=== PATIENT | female | born 1965 | race Caucasian/White ===

== ENCOUNTER 2019-07-10 00:03 | Emergency (ER) | payer OTHER ==
[2019-07-10] MEDS ORDERED: Ketorolac 30 MG/ML SDV IVPUSH STA (01:01)
[2019-07-10] MEDS ORDERED: Tamsulosin 0.4 MG Cap.ER PO ONE (01:01)
[2019-07-10] MEDS ORDERED: Ondansetron 4 MG/2 ML SDV IVPUSH ONE (01:01)
--- NOTE | 2019-07-10 01:04 | EDM.PDOC ---
ED HPI GENERAL MEDICAL PROBLEM - General Chief Complaint: Abdominal Pain Stated Complaint: SIDE PAIN Time Seen by Provider: 07/10/19 00:29 Source of Information: Reports: Patient History Limitations: Reports: No Limitations - History of Present Illness INITIAL COMMENTS - FREE TEXT/NARRATIVE: Mrs. Delaney is a very pleasant 50-year-old woman with no significant past medical history, who states that she developed right flank pain that radiated to her right lower quadrant around 20:30, around the time that she caught her father, who was falling. The pain is stabbing in character, and waxes and wanes. It may feel a little bit better when she is standing, otherwise, she has not identified any modifiers. She has had nausea and dry heaves, which have not modified her symptoms. No recent fever, chills, cough, dyspnea, vomiting, constipation, diarrhea, or urinary symptoms, including dysuria, urinary frequency or urgency, or gross hematuria. The patient states that she had similar symptoms on 06/24/2019, but they resolved after about 30 minutes. She did not seek medical attention at the time. The patient's last oral solid food was around 18:00. The patient is visiting from [facility]. 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, Other (See Below) (ovarian cyst) Musculoskeletal History: Reports: Fracture (left clavicle) - Past Surgical History HEENT Surgical History: Reports: Adenoidectomy, Oral Surgery (wisdom teeth extraction), Tonsillectomy GI Surgical History: Reports: Cholecystectomy (around 1998) Female Surgical History: Reports: D&C (x 2), Tubal Ligation (around 1999) Musculoskeletal Surgical History: Reports: Other (See Below) (Right bunionectomy around 1991) Social & Family History - Tobacco Use Smoking Status *Q: Never Smoker - Caffeine Use Caffeine Use: Reports: Coffee - Alcohol Use Alcohol Use History: Yes Alcohol Use Frequency: Socially - Recreational Drug Use Recreational Drug Use: No - Living Situation & Occupation Living situation: Reports: , with Spouse, with Family (1 son) 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 ED EXAM, GENERAL - Physical Exam Exam: See Below Exam Limited By: No Limitations General Appearance: Alert, WD/WN, Mild Distress (appears mildly uncomfortable) Eye Exam: Bilateral Eye: EOMI, Normal Inspection Ears: Normal External Exam, Hearing Grossly Normal Nose: Normal Inspection Throat/Mouth: Normal Inspection, Normal Lips, Normal Voice, No Airway Compromise Head: Atraumatic, Normocephalic Neck: Normal Inspection, Full Range of Motion Respiratory/Chest: No Respiratory Distress, Lungs Clear, Normal Breath Sounds, No Accessory Muscle Use Cardiovascular: Normal Peripheral Pulses, Regular Rate, Rhythm, No Edema, No Gallop, No JVD, No Murmur, No Rub Peripheral Pulses: 4+: Radial (L), Radial (R) GI/Abdominal: Normal Bowel Sounds, Soft, No Organomegaly, No Distention, No Abnormal Bruit, No Mass, Tender (Mild, to the right lower quadrant only. Nontender elsewhere, although palpation elsewhere leads to increased "pressure" sensation in the right lower quadrant.) (Female) Exam: Deferred Rectal (Female) Exam: Deferred Back Exam: Normal Inspection, Full Range of Motion, CVA Tenderness (R) ( nontender to direct palpation without percussion). No: CVA Tenderness (L) Extremities: Normal Inspection, Normal Range of Motion, No Pedal Edema, Normal Capillary Refill Neurological: Alert, Oriented, Normal Cognition, No Motor/Sensory Deficits Psychiatric: Normal Affect Skin Exam: Warm, Dry, Intact, Normal Color, No Rash Course - Vital Signs Last Recorded V/S: Last Vital Signs Temp 36.4 C 07/10/19 00:30 Pulse 96 07/10/19 00:30 Resp 18 07/10/19 00:30 BP 165/77 H 07/10/19 00:30 Pulse Ox 96 07/10/19 00:30 - Orders/Labs/Meds Orders: Active Orders 24 hr Category Date Time Status Abdomen Pelvis w Cont [CT] Stat Exams 07/10/19 00:59 Taken Sodium Chloride 0.9% [Normal Saline] 1,000 ml Med 07/10/19 01:15 Active IV ASDIRECTED Medication Orders Sodium Chloride (Normal Saline) 1,000 mls @ 150 mls/hr IV ASDIRECTED JOVON Last Admin: 07/10/19 01:27 Dose: 150 mls/hr Labs: Laboratory Tests 07/10/19 07/10/19 07/10/19 Range/Units 00:40 01:23 01:23 WBC 11.02 H (3.98-10.04) K/mm3 RBC 4.62 (3.98-5.22) M/mm3 Hgb 13.8 (11.2-15.7) gm/dl Hct 40.2 (34.1-44.9) % MCV 87.0 (79.4-94.8) fl MCH 29.9 (25.6-32.2) pg MCHC 34.3 (32.2-35.5) g/dl RDW Std Deviation 41.9 (36.4-46.3) fL Plt Count 397 H (182-369) K/mm3 MPV 9.0 L (9.4-12.3) fl Neutrophils % (Manual) 81 H (40-60) % Band Neutrophils % 0 (0-10) % Lymphocytes % (Manual) 13 L (20-40) % Atypical Lymphs % 0 % Monocytes % (Manual) 6 (2-10) % Eosinophils % (Manual) 0 L (0.7-5.8) % Basophils % (Manual) 0 L (0.1-1.2) Platelet Estimate Adequate Plt Morphology Comment Normal RBC Morph Comment Normal Sodium 142 (136-145) mEq/L Potassium 3.4 L (3.5-5.1) mEq/L Chloride 105 (98-107) mEq/L Carbon Dioxide 26 (21-32) mEq/L Anion Gap 14.4 (5-15) BUN 14 (7-18) mg/dL Creatinine 0.7 (0.55-1.02) mg/dL Est Cr Clr Drug Dosing 69.33 mL/min Estimated GFR (MDRD) > 60 (>60) mL/min BUN/Creatinine Ratio 20.0 H (14-18) Glucose 125 H (74-106) mg/dL Calcium 9.3 (8.5-10.1) mg/dL Total Bilirubin 1.1 H (0.2-1.0) mg/dL AST 13 L (15-37) U/L ALT 26 (14-59) U/L Alkaline Phosphatase 131 H (46-116) U/L Total Protein 7.0 (6.4-8.2) g/dl Albumin 3.7 (3.4-5.0) g/dl Globulin 3.3 gm/dL Albumin/Globulin Ratio 1.1 (1-2) Urine Color Yellow (Yellow) Urine Appearance Clear (Clear) Urine pH 6.0 (5.0-8.0) Ur Specific [place] 1.025 (1.005-1.030) Urine Protein 2+ H (Negative) Urine Glucose (UA) Negative (Negative) Urine Ketones Trace H (Negative) Urine Occult Blood 3+ H (Negative) Urine Nitrite Negative (Negative) Urine Bilirubin Negative (Negative) Urine Urobilinogen 0.2 (0.2-1.0) Ur Leukocyte Esterase Negative (Negative) Urine RBC 10-20 H (0-5) /hpf Urine WBC 5-10 H (0-5) /hpf Ur Epithelial Cells 0-5 (0-5) /hpf Urine Bacteria Rare (FEW) /hpf Urine Mucus Few (FEW) /hpf Meds: Medications Generic Name Dose Route Start Last Admin Trade Name Freq PRN Reason Stop Dose Admin Sodium Chloride 1,000 mls @ 150 mls/hr 07/10/19 01:15 07/10/19 01:27 Normal Saline IV 150 mls/hr ASDIRECTED JOVON Administration Discontinued Medications Generic Name Dose Route Start Last Admin Trade Name Freq PRN Reason Stop Dose Admin Diatrizoate Meglum/Diatrizoate Sod 90 ml 07/10/19 02:26 07/10/19 03:00 Gastrografin 37% PO 07/10/19 02:27 90 ml ONETIME ONE Administration Iopamidol 100 ml 07/10/19 02:26 07/10/19 03:00 Isovue-300 (61%) IVPUSH 07/10/19 02:27 100 ml ONETIME ONE Administration Ketorolac Tromethamine 30 mg 07/10/19 01:01 07/10/19 01:27 Toradol IVPUSH 07/10/19 01:02 30 mg ONETIME STA Administration Ondansetron HCl 4 mg 07/10/19 01:01 07/10/19 01:28 Zofran IVPUSH 07/10/19 01:02 4 mg ONETIME ONE Administration Tamsulosin HCl 0.4 mg 07/10/19 01:01 07/10/19 01:28 Flomax PO 07/10/19 01:02 0.4 mg ONETIME ONE Administration - Re-Assessments/Exams Free Text/Narrative Re-Assessment/Exam: 07/10/19 01:02 The patient's history and physical examination are most compelling for a right- sided ureterolith, and if that's what it turns out the patient has, then that may explain the pain that she suffered on 06/24/2019, as well. The only problem is that the patient also has some tenderness to her abdomen, raising the possibility that she could have an intra-abdominal process, such as appendicitis or (much less likely) a hemorrhagic ovarian cyst. For this reason, I have ordered a CT of the abdomen and pelvis with oral and IV contrast, along with some blood work and a urinalysis. In the meantime, the patient will receive IV fluid, IV Toradol, oral Flomax, and IV Zofran. She tells me that she has anaphylaxis to morphine, therefore I am avoiding Dilaudid. 07/10/19 02:35 The patient's CBC is remarkable for a WBC count mildly elevated at 11.02, but with 0% bandemia. Her platelets are mildly elevated at 397,000. The remainder of her CBC is unremarkable. Her CMP is remarkable for a potassium slightly depressed at 3.4, and blood glucose mildly elevated at 125. Her total bilirubin is slightly elevated at 1.1 , and her alkaline phosphatase is mildly elevated at 113. The remainder of her CMP is unremarkable. Her urinalysis is remarkable for 3+ occult blood and 10-20 RBCs, but his leukocyte Estrace negative with 5-10 WBCs and nitrite negative with few bacteria. The patient's urinalysis is not consistent with a UTI, but is consistent with a ureterolith. The results of the CT of the abdomen and pelvis are still pending. 07/10/19 03:31 CT of the abdomen and pelvis with oral and IV contrast is read by Ramon as "8 mm stone proximal right ureter causing moderate hydronephrosis." 07/10/19 03:47 Test results discussed with the patient. At 8 mm, the patient will not likely pass the stone on her own. She will need to be treated by a Urologist. The patient prefers to have that done once she returns home to [place] this coming 07/12/2019. I advised that she call a urologist in [place] now , to make an appointment to be seen as soon as possible after she returns home. I will discharge the patient home with prescriptions for Flomax and Zofran, as well as a CD-ROM of her CT scan. Departure - Departure Time of Disposition: 03:48 Disposition: Home, Self-Care 01 Condition: Good Clinical Impression: Ureterolithiasis - Discharge Information *PRESCRIPTION DRUG MONITORING PROGRAM REVIEWED*: Not Applicable *COPY OF PRESCRIPTION DRUG MONITORING REPORT IN PATIENT ROSEMARIE: Not Applicable Prescriptions: Ondansetron [Zofran ODT] 1 tab PO Q8H PRN #10 tab.dis PRN Reason: Nausea/Vomiting Tamsulosin HCl [Flomax] 1 cap PO QPM #5 cap.er.24h Referrals: PCP,Not In Area [Primary Care Provider] - Forms: ED Department Discharge Additional Instructions: You were seen in the emergency room for right flank that radiated to your right lower quadrant, along with nausea and dry heaves. Workup in the ER included blood work, a urinalysis, and a CT scan of your abdomen and pelvis with oral and IV contrast. Your workup found that you have an 8 mm stone in your proximal right ureter. Based on the size and location of the stone, you will not likely pass it on your own. You will need to see a Urologist. We recommend that you call a Urologist in [place], to make arrangements to be seen as soon as possible after you return home. You have been provided with a CD ROM of your CT scan. Take it to your Urologist. Prescriptions for the anti-spasm medicine Flomax in the anti-nausea medicine Zofran have been sent to the [facility], located just south and across the [address] from [facility]. Take one tablet of Flomax every evening, starting this evening, Monday, 2018. Dissolve one tablet of Zofran on your tongue up to every 8 hours, as needed for nausea/vomiting. We recommend that you take [id number] ibuprofen, 3 tablets (600 mg) every 8 hours, [id number]. Stay adequately hydrated. It does not really matter what type of fluid you drink. If any other problems, please do not hesitate to return to the ER. - My Orders Last 24 Hours: My Active Orders 07/10/19 00:59 Abdomen Pelvis w Cont [CT] Stat 07/10/19 01:15 Sodium Chloride 0.9% [Normal Saline] 1,000 ml IV ASDIRECTED - Assessment/Plan Last 24 Hours: My Active Orders 07/10/19 00:59 Abdomen Pelvis w Cont [CT] Stat 07/10/19 01:15 Sodium Chloride 0.9% [Normal Saline] 1,000 ml IV ASDIRECTED
[2019-07-10] MEDS ORDERED: Sodium Chloride 0.9% 1,000 ML IV SCH (01:15)
[2019-07-10] MEDS ORDERED: Diatrizoate Meglumine/Diatrizoate Sodium 37% 120 ML Bottle PO ONE (02:26)
[2019-07-10] MEDS ORDERED: Iopamidol 612 MG/ML 100 ML Bottle IVPUSH ONE (02:26)
--- NOTE | 2019-07-10 07:25 | CT ---
CT abdomen and pelvis Technique: Multiple axial sections were obtained from above the dome of the diaphragm inferiorly through the pubic symphysis. Intravenous and oral contrast was utilized. Comparison: No prior CT imaging is available. Findings: Right kidney collecting system is dilated. Slightly enhancing wall of the proximal ureter is seen. These findings are due to change from a partially obstructing proximal right ureteral stone located near the UPJ measuring 9.7 mm. No other abnormal calcifications are seen within the kidneys. No other ureteral calculi are seen. Visualized lung bases show nothing acute. Liver contains no focal abnormality. Surgical clips are seen from prior cholecystectomy. Spleen appears within normal limits. Pancreas is within normal limits. Adrenal glands contain no nodule. Aorta shows no aneurysm. No retroperitoneal adenopathy or mesenteric abnormalities are seen. No free fluid or inflammatory change otherwise seen. Minimal sigmoid diverticuli are seen as well as several diverticuli within the descending colon without diverticulitis. Incidental note of chronic malrotation with colon located on the left side of small bowel on the right side. Appendix is seen and is felt to be normal. Bone window settings were reviewed which appear within normal limits for the patient's age. Small fat-containing umbilical hernia is noted. Delayed images show contrast throughout both ureters. Impression: 1. Partially obstructing 9.7 mm proximal right ureteral stone located near the UPJ. 2. Chronic malrotation as an incidental finding. Other findings believed to be incidental as noted above. 3. No other acute abnormality is seen. Diagnostic code #3 I agree with preliminary report from [facility], finalized on 07/10/19, 4:14 AM Central Time
== END 2019-07-10 04:06 | disposition home or self-care (01) ==
LOC: JD.ED 00:03
DX: N20.1 Calculus of ureter (principal); Z90.49 Acquired absence of other specified parts of digestive tract; Z88.5 Allergy status to narcotic agent
CPT/HCPCS: 36415; 74177; 80053; 81001; 85007; 85027; 96361; 96374; 96375; 99284; A9270; J1885; J2405; J7040; Q9963; Q9967

== ENCOUNTER 2019-07-11 07:24 | Emergency (ER) | payer OTHER ==
[2019-07-11] MEDS ORDERED: HYDROmorphone 0.5 MG/0.5 ML Syringe IVPUSH ONE ×2 (07:54→08:32)
[2019-07-11] MEDS ORDERED: Sodium Chloride 0.9% 10 ML Syringe FLUSH PRN (07:54)
[2019-07-11] MEDS ORDERED: Ondansetron 4 MG/2 ML SDV IVPUSH ONE (07:54)
--- NOTE | 2019-07-11 08:13 | EDM.PDOC ---
ED HPI GENERAL MEDICAL PROBLEM - General Chief Complaint: Flank Pain Stated Complaint: KIDNEY STONE Time Seen by Provider: 07/11/19 07:49 Source of Information: Reports: Patient, RN Notes Reviewed - History of Present Illness INITIAL COMMENTS - FREE TEXT/NARRATIVE: 54-year-old lady comes in with severe right flank and back discomfort. He was diagnosed with kidney stone on the right about a day and a half ago this all started with right back and flank discomfort and she was having fairly severe discomfort when evaluated here in the ED a day and a half ago. Renal CT did show an 8 mm stone in the right ureter according the patient. She has not been having much discomfort until this morning about an hour ago when she did have onset of severe right flank discomfort radiating to the right groin. She also had some mild nausea. She did take Motrin about an hour ago and that did give some mild relief but now the pain is once again coming back, quite severe at time of my evaluation. She's had no fever or chills, no voiding symptomatology. She had been eating and drinking fluids satisfactorily. 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, Other (See Below) Other NETBACKUP ENGINEER History: fibroids and cyst on ovary Musculoskeletal History: Reports: Fracture Other Musculoskeletal History: bunionectomy - Past Surgical History HEENT Surgical History: Reports: Adenoidectomy, Oral Surgery, Tonsillectomy GI Surgical History: Reports: Cholecystectomy Female Surgical History: Reports: D&C, Tubal Ligation Musculoskeletal Surgical History: Reports: Other (See Below) Social & Family History - Tobacco Use Smoking Status *Q: Never Smoker Second Hand Smoke Exposure: No - Caffeine Use Caffeine Use: Reports: Soda - Recreational Drug Use Recreational Drug Use: No - Living Situation & Occupation Living situation: Reports: , with Spouse, with Family (1 son) 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 Denies: Vomiting : Reports: No Symptoms Musculoskeletal: Reports: Back Pain (Right flank and back) Skin: Reports: No Symptoms Neurological: Reports: No Symptoms ED EXAM, RENAL/ - Physical Exam Exam: See Below General Appearance: Alert, Moderate Distress Eye Exam: Bilateral Eye: PERRL Throat/Mouth: Normal Inspection Head: Atraumatic Neck: Supple Respiratory/Chest: No Respiratory Distress, Lungs Clear, Normal Breath Sounds Cardiovascular: Regular Rate, Rhythm GI/Abdominal: Soft, Non-Tender. No: Guarding Back Exam: Normal Inspection, CVA Tenderness (R). No: CVA Tenderness (L) Extremities: Normal Inspection (Mild), Normal Range of Motion Neurological: Alert, Oriented, No Motor/Sensory Deficits Skin Exam: Warm, Dry, Normal Color Course - Vital Signs Last Recorded V/S: Last Vital Signs Temp 98.1 F 07/11/19 07:29 Pulse 89 07/11/19 07:29 Resp 14 07/11/19 07:29 BP 160/91 H 07/11/19 07:29 Pulse Ox 100 07/11/19 07:29 - Orders/Labs/Meds Meds: Medications Discontinued Medications Generic Name Dose Route Start Last Admin Trade Name Sybil PRN Reason Stop Dose Admin Hydromorphone HCl 0.5 mg 07/11/19 07:54 07/11/19 08:00 Dilaudid IVPUSH 07/11/19 07:55 0.5 mg ONETIME ONE Administration Hydromorphone HCl 0.5 mg 07/11/19 08:32 07/11/19 08:39 Dilaudid IVPUSH 07/11/19 08:33 0.5 mg ONETIME ONE Administration Ondansetron HCl 4 mg 07/11/19 07:54 07/11/19 08:00 Zofran IVPUSH 07/11/19 07:55 4 mg ONETIME ONE Administration Sodium Chloride 10 ml 07/11/19 07:54 07/11/19 08:01 Saline Flush FLUSH 10 ml ASDIRECTED PRN Administration Keep Vein Open Departure - Departure Time of Disposition: :28 Disposition: Home, Self-Care 01 Condition: Fair Clinical Impression: Ureteric colic, Ureterolithiasis - Discharge Information Prescriptions: Acetaminophen/HYDROcodone [Nimitz 325-5 MG] 1 tab PO Q4H PRN #14 tablet PRN Reason: Pain Instructions: Kidney Stones, [id number] Referrals: PCP,Not In Area [Primary Care Provider] - Forms: ED Department Discharge Additional Instructions: Drink plenty of water to maintain hydration, Tylenol every 6-8 hours as needed for pain or hydrocodone if needed for more severe pain, do not take Tylenol and hydrocodone at the same time, do not drive when taking the hydrocodone. Work with your doctor back home for Urology appointment as soon as possible early next week. Return to ED as needed.
== END 2019-07-11 09:54 | disposition home or self-care (01) ==
LOC: JD.ED 07:24
DX: N20.1 Calculus of ureter (principal); Z88.5 Allergy status to narcotic agent; Z90.49 Acquired absence of other specified parts of digestive tract
CPT/HCPCS: 96374; 96375; 99283; J1170; J2405; 99284